=== PATIENT | male | born 1980 | race Caucasian/White ===

== ENCOUNTER 2019-02-01 12:34 | Emergency (ER) | payer SELFPAY ==
[~2019-02-01] VITALS: Ht 175.3 cm; Wt 95.2 kg
[2019-02-01] MEDS ORDERED: PRED10 PO (14:18)
[2019-02-01] MEDS ORDERED: Norco 10-325 T1 EACH PO (14:18)
== END 2019-02-01 14:39 | disposition home or self-care (01) ==
LOC: ER 12:34
DX: G56.03 Carpal tunnel syndrome, bilateral upper limbs (principal); Z88.0 Allergy status to penicillin; Z88.5 Allergy status to narcotic agent
CPT/HCPCS: 99282